=== PATIENT | male | born 1955 | race Caucasian/White ===

== ENCOUNTER 2019-12-03 11:28 | Inpatient (IN) | payer MEDICARE, MEDICAID ==
[~2019-12-03] VITALS: Ht 182.9 cm; Wt 124.3 kg
[2019-12-03] MEDS ORDERED: INS7030 SUBCUT (11:54)
[2019-12-03] MEDS ORDERED: ROSU20TA2 PO (11:54)
[2019-12-03] MEDS ORDERED: FERR324T4 PO (11:54)
[2019-12-03] MEDS ORDERED: ENAL20TA PO (11:54)
[2019-12-03] MEDS ORDERED: HYDR-4133 PO (11:54)
[2019-12-03] MEDS ORDERED: GLIP5TAB12 PO (11:54)
[2019-12-03] MEDS ORDERED: CLOP75TA15 PO (11:54)
[2019-12-03] MEDS ORDERED: NIFE-32 PO (11:54)
[2019-12-03] MEDS ORDERED: TEMA15CA PO (11:54)
[2019-12-03] MEDS ORDERED: METO-396 PO (11:54)
[2019-12-03] MEDS ORDERED: GABA-531 PO (11:54)
[2019-12-03] MEDS ORDERED: ASPI-1158 PO (11:54)
[2019-12-03] MEDS ORDERED: CLON0.3T PO (11:54)
[2019-12-03] MEDS ORDERED: ESOM20VI IV (11:54)
[2019-12-03] MEDS ORDERED: METF-815 PO (11:54)
[2019-12-03] MEDS ORDERED: PIPERACILLIN/TAZ 3.375G PREMIX 50 ML IV ONE (14:00)
[2019-12-03] MEDS ORDERED: VANCOMYCIN 1 G PREMIX 200 ML IV ONE (14:00)
[2019-12-03 14:35] LABS: HEMOGLOBIN. 14.6 g/dL (14.0-18.0); MEAN CORPUSCULAR HEMOGLOBIN 29.6 pg (28.0-32.0); MEAN CORPUSCULAR VOLUME 86.9 fL (80.0-94.0); MEAN PLATELET VOLUME 8.2 fl (7.4-10.4); PLATELET 234 x1000/uL (130-400); RED BLOOD CELL COUNT 4.95 mill/uL (4.7-6.1); RED CELL DISTRIBUTION WIDTH 13.7 % (11.6-14.6)
[2019-12-03 14:40] LABS: INR 1.1; PROTHROMBIN TIME 10.8 sec (9.6-11.0)
[2019-12-03 14:42] LABS: CHLORIDE 111 mEq/L (98-107)
[2019-12-03 14:50] LABS: ETHANOL BLOOD < 10 mg/dL
[2019-12-03] MEDS ORDERED: SODIUM CHLORIDE 0.9% 1000ML BAG (SEPSIS BOLUS) IV ONE (15:30)
[2019-12-03 16:05] LABS: PLATELET ESTIMATE NORMAL
[2019-12-03] MEDS ORDERED: LORAZEPAM 2MG/ML CPJ IV PRN (17:00)
[2019-12-03] MEDS ORDERED: GUAIFENESIN 200MG/10ML SUGAR FREE UDC PO PRN (17:00)
[2019-12-03] MEDS ORDERED: MAGNESIUM/ALUMINUM HYDROXIDE/SIMETHICONE 30ML UDC PO PRN (17:00)
[2019-12-03] MEDS ORDERED: DIPHENHYDRAMINE 50MG/ML VIAL IV PRN (17:00)
[2019-12-03] MEDS ORDERED: ENOXAPARIN 40MG/0.4ML SYR SUBCUT SCH (17:00)
[2019-12-03] MEDS ORDERED: IPRATROPIUM/ALBUTEROL 0.5-3(2.5)MG/3ML NEB NEB PRN (17:00)
[2019-12-03] MEDS ORDERED: CLONIDINE 0.1MG TABLET PO PRN (17:00)
[2019-12-03] MEDS ORDERED: MORPHINE SULFATE 2 MG/ML CPJ (NOT FOR IM USE) IV PRN (17:00)
[2019-12-03] MEDS ORDERED: DOCUSATE SODIUM 100MG CAPSULE PO PRN (17:00)
[2019-12-03] MEDS ORDERED: ONDANSETRON HCL 4MG/2ML INJ IV PRN (17:00)
[2019-12-03] MEDS ORDERED: NA PHOS,M-B/NA PHOS,DI-BA ENEMA 118ML PR PRN (17:00)
[2019-12-03 19:04] LABS: CLARITY URINE CLOUDY (CLEAR); COLOR URINE YELLOW (YELLOW); KETONES URINE NEGATIVE (NEGATIVE); LEUKOCYTE ESTERASE URINE NEGATIVE (NEGATIVE); NITRITE URINE NEGATIVE (NEGATIVE); OCCULT BLOOD URINE 1+ (NEGATIVE); PROTEIN URINE 3+ (NEGATIVE); UROBILINOGEN URINE 0.2 E.U./dL (0.2-1.0)
[2019-12-03] MEDS ORDERED: PIPERACILLIN/TAZ 3.375G PREMIX 50 ML IV SCH (20:00)
[2019-12-03] MEDS: ACETAMINOPHEN 325MG TABLET PO PRN (21:19)
[2019-12-03 22:33] VITALS: BP 119/79
[2019-12-03] MEDS: PIPERACILLIN/TAZOBACTAM 3.375 G in DEXT 5% WATER 100 ML IV SCH (23:40)
[2019-12-03] MEDS: SODIUM CHLORIDE 0.45% 1,000 ML IV SCH (23:41)
[2019-12-03] MEDS: ENOXAPARIN 30MG/0.3ML SYR SUBCUT SCH (23:53)
[2019-12-03] MEDS: VANCOMYCIN 1 G PREMIX 200 ML IV SCH (23:53)
[2019-12-04] VITALS (13 sets, daily range): BP systolic 102–168; BP diastolic 46–84
[2019-12-04] MEDS ORDERED: DEXTROSE 50% WATER 50ML SYRINGE IV PRN (00:15)
[2019-12-04] MEDS: ACETAMINOPHEN 325MG TABLET PO PRN ×2 (05:23→14:25)
[2019-12-04] MEDS: BLOOD SUGAR DIAGNOSTIC STRIP TEST SCH ×4 (06:04→21:18)
[2019-12-04] MEDS: PIPERACILLIN/TAZOBACTAM 3.375 G in DEXT 5% WATER 100 ML IV SCH ×2 (08:25→17:19)
[2019-12-04] MEDS: INSULIN LISPRO 100 UNITS/ML SUBCUT SCH ×4 (08:25→21:30)
[2019-12-04] MEDS: SODIUM CHLORIDE 0.45% 1,000 ML IV SCH (08:26)
[2019-12-04] MEDS: ENOXAPARIN 30MG/0.3ML SYR SUBCUT SCH ×2 (08:26→21:31)
[2019-12-04] MEDS: ASPIRIN 81MG EC TABLET PO SCH (08:26)
[2019-12-04 09:44] LABS: HEMATOCRIT. 38.3 % (42.0-52.0); HEMOGLOBIN. 13.2 g/dL (14.0-18.0); MEAN CORPUSCULAR HEMOGLOBIN 30.2 pg (28.0-32.0); MEAN CORPUSCULAR VOLUME 87.7 fL (80.0-94.0); MEAN PLATELET VOLUME 8.2 fl (7.4-10.4); PLATELET 176 x1000/uL (130-400); RED BLOOD CELL COUNT 4.37 mill/uL (4.7-6.1)
[2019-12-04 09:50] LABS: CHLORIDE 111 mEq/L (98-107)
[2019-12-04 10:00] LABS: LDL CHOLESTEROL 22 mg/dL (5-100)
[2019-12-04 10:01] LABS: HDL CHOLESTEROL 24 mg/dL (40-59)
[2019-12-04 10:02] LABS: T4 FREE 1.15 ng/dL (0.76-1.46)
[2019-12-04] MEDS ORDERED: LORAZEPAM 2MG/ML CPJ IV PRN (13:45)
[2019-12-04] MEDS ORDERED: HALOPERIDOL LACTATE 5MG/ML VIAL IM PRN (13:45)
[2019-12-04] MEDS: LORAZEPAM 0.5MG TABLET PO PRN ×2 (14:25→21:03)
[2019-12-04] MEDS: HYDROCODONE/ACETAMINOPHEN 5/325MG TABLET PO PRN ×2 (14:56→21:12)
[2019-12-04 17:50] LABS: PLATELET ESTIMATE NORMAL
[2019-12-04] MEDS: VANCOMYCIN 1 G PREMIX 200 ML IV SCH (18:27)
[2019-12-04 20:07] LABS: CREATINE KINASE 464 IU/L (39-308)
[2019-12-04] MEDS: GUAIFENESIN 600MG ER TABLET PO SCH (21:03)
[2019-12-04] MEDS: IPRATROPIUM/ALBUTEROL 0.5-3(2.5)MG/3ML NEB HHN SCH (21:40)
[2019-12-05] VITALS (12 sets, daily range): BP systolic 106–162; BP diastolic 45–141
[2019-12-05] MEDS: PIPERACILLIN/TAZOBACTAM 3.375 G in DEXT 5% WATER 100 ML IV SCH ×3 (00:42→17:04)
[2019-12-05] MEDS: IPRATROPIUM/ALBUTEROL 0.5-3(2.5)MG/3ML NEB HHN SCH ×4 (01:51→21:15)
[2019-12-05] MEDS: SODIUM CHLORIDE 0.45% 1,000 ML IV SCH ×2 (02:49→18:30)
[2019-12-05] MEDS: BLOOD SUGAR DIAGNOSTIC STRIP TEST SCH ×4 (06:39→20:22)
[2019-12-05 07:50] LABS: BASOPHILS % 0.3 % (0.0-2.0); HEMATOCRIT. 35.1 % (42.0-52.0); LYMPHOCYTES % 7.2 % (20.0-50.0); MEAN CORPUSCULAR VOLUME 88.3 fL (80.0-94.0); MEAN PLATELET VOLUME 8.7 fl (7.4-10.4); MONOCYTES % 3.1 % (2.0-8.0); NEUTROPHILS % 89.4 % (40.0-76.0); PLATELET 152 x1000/uL (130-400); RED BLOOD CELL COUNT 3.98 mill/uL (4.7-6.1); RED CELL DISTRIBUTION WIDTH 13.9 % (11.6-14.6)
[2019-12-05] MEDS: INSULIN LISPRO 100 UNITS/ML SUBCUT SCH ×4 (08:19→20:39)
[2019-12-05] MEDS: GUAIFENESIN 600MG ER TABLET PO SCH ×2 (09:59→20:25)
[2019-12-05] MEDS: ENOXAPARIN 30MG/0.3ML SYR SUBCUT SCH ×2 (09:59→20:25)
[2019-12-05] MEDS: ASPIRIN 81MG EC TABLET PO SCH (09:59)
[2019-12-05] MEDS: VANCOMYCIN 1250MG in DEXTROSE 5% WATER 250ML IV SCH (12:22)
[2019-12-06] VITALS (8 sets, daily range): BP systolic 127–149; BP diastolic 53–99
[2019-12-06] MEDS: PIPERACILLIN/TAZOBACTAM 3.375 G in DEXT 5% WATER 100 ML IV SCH ×3 (00:45→16:00)
[2019-12-06] MEDS: IPRATROPIUM/ALBUTEROL 0.5-3(2.5)MG/3ML NEB HHN SCH ×3 (01:17→14:13)
[2019-12-06] MEDS: VANCOMYCIN 1250MG in DEXTROSE 5% WATER 250ML IV SCH (05:27)
[2019-12-06] MEDS: SODIUM CHLORIDE 0.45% 1,000 ML IV SCH ×2 (05:28→14:27)
[2019-12-06] MEDS: BLOOD SUGAR DIAGNOSTIC STRIP TEST SCH ×3 (06:00→17:54)
[2019-12-06] MEDS: ENOXAPARIN 30MG/0.3ML SYR SUBCUT SCH (08:38)
[2019-12-06] MEDS: ASPIRIN 81MG EC TABLET PO SCH (08:38)
[2019-12-06] MEDS: INSULIN LISPRO 100 UNITS/ML SUBCUT SCH ×3 (08:39→17:53)
[2019-12-06] MEDS: GUAIFENESIN 600MG ER TABLET PO SCH (08:43)
[2019-12-06 08:55] LABS: T4 FREE 1.13 ng/dL (0.76-1.46)
[2019-12-06 08:56] LABS: CREATINE KINASE MB FRACTION 2.1 ng/mL (0.5-3.6)
[2019-12-06] MEDS ORDERED: GUAIFENESIN/DM 600MG/30MG ER TAB 12HR PO PRN (12:30)
[2019-12-06 14:50] LABS: BASOPHILS % 0.5 % (0.0-2.0); EOSINOPHILS % 0.7 % (0.0-5.0); HEMATOCRIT. 36.7 % (42.0-52.0); HEMOGLOBIN. 12.6 g/dL (14.0-18.0); LYMPHOCYTES % 8.4 % (20.0-50.0); MEAN CORPUSCULAR HEMOGLOBIN 30.2 pg (28.0-32.0); MEAN CORPUSCULAR VOLUME 88.1 fL (80.0-94.0); MEAN PLATELET VOLUME 8.6 fl (7.4-10.4); MONOCYTES % 6.7 % (2.0-8.0); NEUTROPHILS % 83.7 % (40.0-76.0); PLATELET 168 x1000/uL (130-400); RED BLOOD CELL COUNT 4.17 mill/uL (4.7-6.1)
[2019-12-06] MEDS: ACETAMINOPHEN 325MG TABLET PO PRN (17:57)
== END 2019-12-06 18:45 | DRG 871 ==
LOC: ER 11:28 → 3WST 15:35 → EDBEDREQ 15:42 → ENRESERV 19:27 → 3WST 12-04 13:22 → 7WST 12-06 10:40
PROVIDERS: ADMIT Internal Medicine; ATTEND Internal Medicine
DX: A41.9 Sepsis, unspecified organism (principal); J18.9 Pneumonia, unspecified organism; G93.40 Encephalopathy, unspecified; L03.115 Cellulitis of right lower limb; L03.116 Cellulitis of left lower limb; N17.9 Acute kidney failure, unspecified; E87.2 Acidosis; E11.9 Type 2 diabetes mellitus without complications; R65.20 Severe sepsis without septic shock; E78.5 Hyperlipidemia, unspecified; E86.0 Dehydration; I11.0 Hypertensive heart disease with heart failure; I25.10 Atherosclerotic heart disease of native coronary artery without angina pectoris; I50.9 Heart failure, unspecified; K57.90 Diverticulosis of intestine, part unspecified, without perforation or abscess without bleeding; Z79.4 Long term (current) use of insulin; Z95.5 Presence of coronary angioplasty implant and graft; G30.9 Alzheimer's disease, unspecified; F02.80 Dementia in other diseases classified elsewhere, unspecified severity, without behavioral disturbance, psychotic disturbance, mood disturbance, and anxiety; Z79.899 Other long term (current) drug therapy; Z79.84 Long term (current) use of oral hypoglycemic drugs; R74.0 Nonspecific elevation of levels of transaminase and lactic acid dehydrogenase [LDH]
CPT/HCPCS: 36415; 71045; 74176; 80048; 80053; 80061; 80202; 80320; 81003; 82140; 82550; 82553; 82962; 83036; 83605; 83880; 84145; 84439; 84443; 84484; 85025; 85379; 87804; 93005; 93306; 93970; 94640; 96365; 96366; 97162; 99291; J1630; J1650; J1815; J2543; J3370; J7060; J7620; A4315; G0480